=== PATIENT | female | born 1975 | race Caucasian/White ===

== ENCOUNTER 2016-06-16 23:01 | Emergency (ER) | payer OTHER ==
[2016-06-16 23:12] VITALS: BP 142/85; PULSE 83; RESP 20; TEMP 97.9
--- NOTE | 2016-06-16 23:45 | ED ---
General Adult HPI - General Chief complaint: Recheck/Abnormal Lab/Rx Stated complaint: Med refill/review Time Seen by Provider: 06/16/16 23:34 Source: patient, family, RN notes reviewed Mode of arrival: ambulatory Limitations: no limitations - History of Present Illness Initial comments: 41 yo female presents to the emergency department chief complaint of needing her pain medication and Xanax refilled. The patient states that her doctor has lost his license she called all the doctors in town they would not refill her medicine. Patient states that she did get a prescription from Dr. Kenny for the Xanax. Patient states she's been taking it but just doesn't feel like Xanax either. Patient states she was concerned that she was out of her prescriptions she called one pain doctor and he said he would take her toe she was off the OxyContin. Patient states she just needs medication refills. Patient states that she also lost her eye doctor who she sees she is wondering if she can get a referral to an eye doctor in the area as well.Patient denies any recent fever, chills, shortness of breath, chest pain, back pain, abdominal pain, nausea vomiting, numbness or tingling, dysuria or hematuria, constipation or diarrhea, headaches or visual changes, or any other current symptoms. - Related Data Home Medications Medication Instructions Recorded Confirmed ALPRAZolam [Xanax] 2 mg PO Q8H 01/03/15 06/16/16 Cyclobenzaprine [Flexeril] 10 mg PO Q8H 01/03/15 06/16/16 oxyCODONE HCL [OxyCONTIN] 80 mg PO Q6H 01/03/15 06/16/16 Vitamin C/Biotin [Hair, Skin and 1 tab PO DAILY 06/16/16 06/16/16 Nails] Allergies Allergy/AdvReac Type Severity Reaction Status Date / Time Penicillins Allergy Unknown Verified 06/16/16 23:22 Childhood Review of Systems ROS Statement: Those systems with pertinent positive or pertinent negative responses have been documented in the HPI. ROS Other: All systems not noted in ROS Statement are negative. Past Medical History Past Medical History: No Reported History Additional Past Medical History / Comment(s): sciatica, blindness-bilateral, ovarian cyst left, panceratitis, chronic back pain History of Any Multi-Drug Resistant Organisms: None Reported Past Surgical History: Section Additional Past Surgical History / Comment(s): ovarian cyst, Past Psychological History: Anxiety, Depression Smoking Status: Current every day smoker Past Alcohol Use History: None Reported Past Drug Use History: None Reported - Past Family History Father Family Medical History: Cancer Additional Family Medical History / Comment(s): leukemia General Exam Limitations: no limitations General appearance: alert, in no apparent distress Eye exam: Present: normal appearance, PERRL, EOMI. Absent: scleral icterus, conjunctival injection, periorbital swelling ENT exam: Present: normal exam, mucous membranes moist Neck exam: Present: normal inspection. Absent: tenderness, meningismus, lymphadenopathy Respiratory exam: Present: normal lung sounds bilaterally. Absent: respiratory distress, wheezes, rales, rhonchi, stridor Cardiovascular Exam: Present: regular rate, normal rhythm, normal heart sounds. Absent: systolic murmur, diastolic murmur, rubs, gallop, clicks Neurological exam: Present: alert, oriented X3, CN II-XII intact. Absent: motor sensory deficit Psychiatric exam: Present: normal affect, normal mood Skin exam: Present: warm, dry, intact, normal color. Absent: rash Course Vital Signs 06/16/16 23:09 Temperature 97.9 F Pulse Rate 83 Respiratory 20 Rate Blood Pressure 142/85 O2 Sat by Pulse 96 Oximetry Medical Decision Making - Medical Decision Making 41-year-old female presents to emergency room chief complaint of medication refill. This time we discussed that we cannot refill her narcotic pain medication. We discussed these findings pain doctor. We did educate the patient about opiate abuse and dependence. We discussed that she didn't get prescription from Dr. Kenny recently for the Xanax will not refill this either. We did give her family care doctor in [facility] as well as an eye doctor in [facility] due to the fact that she did request these. This time she will be discharged home. Return parameters and follow-up were discussed. Disposition Clinical Impression: Medication refill Disposition: HOME SELF-CARE Condition: Stable Instructions: Medicine Refill (ED) Additional Instructions: Please follow up with family doctor if symptoms have not improved over the next two days. Please return to the emergency room if your symptoms increase or worsen or for any other concerns. Referrals: Marilin Adams MD [STAFF PHYSICIAN] - 1-2 days Vinayak Valente MD [STAFF PHYSICIAN] - 1-2 days Time of Disposition: 23:45
== END 2016-06-16 23:49 | disposition home or self-care (01) ==
LOC: EC 23:01
DX: Z76.0 Encounter for issue of repeat prescription (principal); H54.0 Blindness, both eyes; F41.9 Anxiety disorder, unspecified; F32.9 Major depressive disorder, single episode, unspecified; F17.200 Nicotine dependence, unspecified, uncomplicated; Z79.899 Other long term (current) drug therapy; Z88.0 Allergy status to penicillin
CPT/HCPCS: 99281

== ENCOUNTER 2016-06-29 16:10 | Emergency (ER) | payer OTHER ==
[2016-06-29] MEDS ORDERED: HYDROmorphone 1 MG/ML 1 ML SYRINGE IVP STA (16:45)
[2016-06-29] MEDS ORDERED: SODIUM CHLORIDE 0.9% 1,000 ML IV STA ×2 (16:45)
[2016-06-29] MEDS ORDERED: METOCLOPRAMIDE 5 MG/ML 2 ML VIAL IVP STA (16:45)
[2016-06-29] MEDS ORDERED: PANTOPRAZOLE 40 MG/10 ML VIAL IVP STA (16:45)
--- NOTE | 2016-06-29 16:53 | ED ---
General Adult HPI - General Chief complaint: Abdominal Pain Stated complaint: gallbladder problems Time Seen by Provider: 06/29/16 16:32 Source: patient, family, RN notes reviewed, old records reviewed Mode of arrival: ambulatory Limitations: no limitations - History of Present Illness Initial comments: Chief complaint history of present illness a 41-year-old female here with his significant other. She has complaint of pain to the right upper quadrant. Ongoing for 3 days. Nausea vomiting and diarrhea. Denies fever. Patient reports past history of gallbladder problems and frequent episodes of pancreatitis. She did nondrinker. She also reports having had kidney stones in the past. - Related Data Home Medications Medication Instructions Recorded Confirmed Cyclobenzaprine [Flexeril] 10 mg PO TID 01/03/15 06/29/16 ALPRAZolam [Xanax] 1.5 mg PO TID 06/29/16 06/29/16 Previous Rx's Medication Instructions Recorded Ondansetron Odt [Zofran ODT] 4 mg PO Q8HR PRN #10 tab 06/29/16 Allergies Allergy/AdvReac Type Severity Reaction Status Date / Time Penicillins Allergy Unknown Verified 06/29/16 16:53 Childhood Review of Systems ROS Statement: Those systems with pertinent positive or pertinent negative responses have been documented in the HPI. Review of systems. The patient denies any headache she is lying secondary to recurrent pancreatitis and retinopathy associated with pancreatitis. The patient denies any chest pain or shortness of breath this time she has right upper quadrant pain that goes down toward right mid abdomen. Complaining of nausea vomiting and diarrhea for 3 days. No neuro deficits. All systems reviewed past medical problems significant for gallbladder stones, chronic sciatica pain. kidney stones, recurrent chronic pancreatitis but no attacks in 2007. Patient's pain management doctor as lost his license is unable to get any of her pain medications refilled. Retinopathy associated with pancreatitis. Surgeries include ovarian cysts. Family history father had leukemia. Patient has ALLERGIES to penicillin. She does smoke strongly encouraged to stop denies alcohol use. ROS Other: All systems not noted in ROS Statement are negative. Past Medical History Past Medical History: No Reported History Additional Past Medical History / Comment(s): sciatica, blindness-bilateral, ovarian cyst left, panceratitis, chronic back pain History of Any Multi-Drug Resistant Organisms: None Reported Past Surgical History: Section Additional Past Surgical History / Comment(s): ovarian cyst, Past Psychological History: Anxiety, Depression Smoking Status: Current every day smoker Past Alcohol Use History: None Reported Past Drug Use History: None Reported - Past Family History Father Family Medical History: Cancer Additional Family Medical History / Comment(s): leukemia General Exam - General Exam Comments Initial Comments: General: The patient is awake and alert, complaining of 3 days of nausea vomiting and diarrhea. With right upper quadrant pain. Vital signs shows temperature 97.3 pulse 121 respiratory rate 20 pulse ox 99% room air blood pressure 140/77. Elevated systolic noted. The patient will be referred onto a family physician on discharge. Eye: Pupils equal round and reactive to light. States she has visual acuity changes secondary to chronic pancreatitis many years ago. Ears, nose, mouth and throat: There are moist mucous membranes . Neck: The neck is supple, there is no tenderness . Cardiovascular: Tachycardic heart rate, 120, No murmur, rub or gallop is appreciated. Respiratory: Lungs are clear to auscultation, respirations are non-labored, breath sounds are equal. No wheezes, stridor, rales, or rhonchi. Gastrointestinal: Right upper quadrant pain positive Christiansen sign. No organomegaly appreciated. Back: There is no tenderness to palpation in the midline. There is no obvious deformity. No rashes noted. Musculoskeletal: Normal ROM, no tenderness, There is no pedal edema. There is no calf tenderness or swelling. Sensation intact. Neurological: CN II-XII intact, There are no obvious motor or sensory deficits. Coordination appears grossly intact. Speech is normal. No outward evidence of any neuro deficits. Skin: Skin is warm and dry and no rashes or lesions are noted. Psychiatric: Past history of anxiety and depression as noted on the previous history previous chart. No complaints of depression at this time. Limitations: no limitations Course Vital Signs 06/29/16 16:14 Temperature 97.3 F L Pulse Rate 121 H Respiratory 20 Rate Blood Pressure 140/77 O2 Sat by Pulse 99 Oximetry Medical Decision Making - Medical Decision Making Medical decision making; patient's white count is 13.3 hemoglobin 15 hematocrit of 45, potassium is 3.7 with a BUN 10 creatinine 0.66 and GFR greater than 60. Glucose 122 amylase elevated at 153 lipase elevated at 524. X-ray of the abdomen was done and reviewed by radiologist's his final impression is; nonacute abdomen. there are Unusual calcifications over the sacrum to the left of midline. This would be unusual location for calcified gallstones. These are also present on the old exam and change slightly in position. He states consider a dermoid tumor of the left ovary. As read by Dr. Diaz Review of past studies included an ultrasound of the abdomen was done 2015. The impression at that time as cholelithiasis. The common bile duct was dilated. The radiologist at that time was Dr. Newman. And discussed the patient's numbers with her. Offered admission but she thinks she rather go home with medications to control nausea. We did discuss the possibility of a dermoid cyst. She states it seems that whenever she uses Tylenol her pancreatitis flares up. She has been on Percocet for one week. In the past she had pancreatitis while she was on Vicodin. - Lab Data Result diagrams: 06/29/16 16:30 06/29/16 16:30 Lab Results 06/29/16 06/29/16 06/29/16 Range/Units 16:30 16:30 16:50 WBC 13.3 H (3.8-10.6) k/uL RBC 5.12 (3.80-5.40) m/uL Hgb 15.0 (11.4-16.0) gm/dL Hct 45.2 (34.0-46.0) % MCV 88.2 (80.0-100.0) fL MCH 29.3 (25.0-35.0) pg MCHC 33.2 (31.0-37.0) g/dL RDW 13.7 (11.5-15.5) % Plt Count 455 H (150-450) k/uL Neutrophils % 63 % Lymphocytes % 29 % Monocytes % 4 % Eosinophils % 2 % Basophils % 1 % Neutrophils # 8.3 H (1.3-7.7) k/uL Lymphocytes # 3.8 (1.0-4.8) k/uL Monocytes # 0.6 (0-1.0) k/uL Eosinophils # 0.2 (0-0.7) k/uL Basophils # 0.1 (0-0.2) k/uL Sodium 143 (137-145) mmol/L Potassium 3.7 (3.5-5.1) mmol/L Chloride 104 (98-107) mmol/L Carbon Dioxide 25 (22-30) mmol/L Anion Gap 14 mmol/L BUN 10 (7-17) mg/dL Creatinine 0.66 (0.52-1.04) mg/dL Est GFR (MDRD) Af Amer >60 (>60 ml/min/1.73 sqM) Est GFR (MDRD) Non-Af >60 (>60 ml/min/1.73 sqM) Glucose 122 H (74-99) mg/dL Calcium 9.9 (8.4-10.2) mg/dL Total Bilirubin 0.6 (0.2-1.3) mg/dL AST 19 (14-36) U/L ALT 36 (9-52) U/L Alkaline Phosphatase 79 (38-126) U/L Total Protein 8.0 (6.3-8.2) g/dL Albumin 4.4 (3.5-5.0) g/dL Amylase 153 H (30-110) U/L Lipase 524 H (23-300) U/L Urine Color Cancelled Urine Appearance Cancelled Urine pH Cancelled Ur Specific [place] Cancelled Urine Protein Cancelled Ur Protein Confirm Cancelled Urine Glucose (UA) Cancelled Urine Ketones Cancelled Urine Blood Cancelled Urine Nitrate Cancelled Urine Bilirubin Cancelled Ur Bilirubin Confirm Cancelled Urine Urobilinogen Cancelled Ur Leukocyte Esterase Cancelled Urine RBC Cancelled Urine Red Cell Clumps Cancelled Urine WBC Cancelled Urine WBC Clumps Cancelled Ur Squamous Epith Cells Cancelled Ur Transition Epith Cell Cancelled Ur Renal Epithelial Cell Cancelled Calcium Carbonate Cryst Cancelled Calcium Phosphate Cryst Cancelled Calcium Oxalate Crystal Cancelled Leucine Crystals Cancelled Cystine Crystals Cancelled Uric Acid Crystals Cancelled Triple Phos Crystals Cancelled Tyrosine Crystals Cancelled Other Crystals Cancelled Amorphous Sediment Cancelled Urine Bacteria Cancelled Cellular Casts Cancelled Epithelial Casts Cancelled Fatty Casts Cancelled Hyaline Casts Cancelled Granular Casts Cancelled Waxy Casts Cancelled Broad Casts Cancelled RBC Casts Cancelled WBC Casts Cancelled Other Casts Cancelled Urine Mucus Cancelled Urine Trichomonas Cancelled Ur Yeast w [place] Cancelled Urine Yeast (Budding) Cancelled Urine Sperm Cancelled Ur Oval Fat Bodies Cancelled Urine HCG, Qual (Not Detectd) Urine Opiates Screen Detected H (NotDetected) Ur Oxycodone Screen Not Detected (NotDetected) Urine Methadone Screen Not Detected (NotDetected) Ur Propoxyphene Screen Not Detected (NotDetected) Ur Barbiturates Screen Not Detected (NotDetected) U Tricyclic Antidepress Detected H (NotDetected) Ur Phencyclidine Scrn Not Detected (NotDetected) Ur Amphetamines Screen Not Detected (NotDetected) U Methamphetamines Scrn Not Detected (NotDetected) U Benzodiazepines Scrn Detected H (NotDetected) Urine Cocaine Screen Not Detected (NotDetected) U Marijuana (THC) Screen Detected H (NotDetected) 06/29/16 Range/Units 16:50 WBC (3.8-10.6) k/uL RBC (3.80-5.40) m/uL Hgb (11.4-16.0) gm/dL Hct (34.0-46.0) % MCV (80.0-100.0) fL MCH (25.0-35.0) pg MCHC (31.0-37.0) g/dL RDW (11.5-15.5) % Plt Count (150-450) k/uL Neutrophils % % Lymphocytes % % Monocytes % % Eosinophils % % Basophils % % Neutrophils # (1.3-7.7) k/uL Lymphocytes # (1.0-4.8) k/uL Monocytes # (0-1.0) k/uL Eosinophils # (0-0.7) k/uL Basophils # (0-0.2) k/uL Sodium (137-145) mmol/L Potassium (3.5-5.1) mmol/L Chloride (98-107) mmol/L Carbon Dioxide (22-30) mmol/L Anion Gap mmol/L BUN (7-17) mg/dL Creatinine (0.52-1.04) mg/dL Est GFR (MDRD) Af Amer (>60 ml/min/1.73 sqM) Est GFR (MDRD) Non-Af (>60 ml/min/1.73 sqM) Glucose (74-99) mg/dL Calcium (8.4-10.2) mg/dL Total Bilirubin (0.2-1.3) mg/dL AST (14-36) U/L ALT (9-52) U/L Alkaline Phosphatase (38-126) U/L Total Protein (6.3-8.2) g/dL Albumin (3.5-5.0) g/dL Amylase (30-110) U/L Lipase (23-300) U/L Urine Color Urine Appearance Urine pH Ur Specific [place] Urine Protein Ur Protein Confirm Urine Glucose (UA) Urine Ketones Urine Blood Urine Nitrate Urine Bilirubin Ur Bilirubin Confirm Urine Urobilinogen Ur Leukocyte Esterase Urine RBC Urine Red Cell Clumps Urine WBC Urine WBC Clumps Ur Squamous Epith Cells Ur Transition Epith Cell Ur Renal Epithelial Cell Calcium Carbonate Cryst Calcium Phosphate Cryst Calcium Oxalate Crystal Leucine Crystals Cystine Crystals Uric Acid Crystals Triple Phos Crystals Tyrosine Crystals Other Crystals Amorphous Sediment Urine Bacteria Cellular Casts Epithelial Casts Fatty Casts Hyaline Casts Granular Casts Waxy Casts Broad Casts RBC Casts WBC Casts Other Casts Urine Mucus Urine Trichomonas Ur Yeast w [place] Urine Yeast (Budding) Urine Sperm Ur Oval Fat Bodies Urine HCG, Qual Not Detected (Not Detectd) Urine Opiates Screen (NotDetected) Ur Oxycodone Screen (NotDetected) Urine Methadone Screen (NotDetected) Ur Propoxyphene Screen (NotDetected) Ur Barbiturates Screen (NotDetected) U Tricyclic Antidepress (NotDetected) Ur Phencyclidine Scrn (NotDetected) Ur Amphetamines Screen (NotDetected) U Methamphetamines Scrn (NotDetected) U Benzodiazepines Scrn (NotDetected) Urine Cocaine Screen (NotDetected) U Marijuana (THC) Screen (NotDetected) Disposition Clinical Impression: Pancreatitis, chronic Disposition: HOME SELF-CARE Condition: Fair Instructions: Pancreatitis (ED) Additional Instructions: Advance her diet do not use Tylenol. Use Zofran for nausea vomiting. Follow- up with her family physician to have a family physician follow-up with on-call physician to the emergency room. Prescriptions: Ondansetron Odt [Zofran ODT] 4 mg PO Q8HR PRN #10 tab PRN Reason: Nausea Time of Disposition: 18:26
[2016-06-29 16:57] LABS: Basophils # (A) 0.1 k/uL (0-0.2); Basophils % (A) 1 %; CH 29.6; CHCM 33.6; Eosinophils # (A) 0.2 k/uL (0-0.7); Eosinophils % (A) 2 %; HCT 45.2 % (34.0-46.0); HDW 2.67; Luc # (Auto) 0.29; Luc % (Auto) 2; Lymphocytes # (A) 3.8 k/uL (1.0-4.8); Lymphocytes % (A) 29 %; MCH 29.3 pg (25.0-35.0); MCHC 33.2 g/dL (31.0-37.0); MCV 88.2 fL (80.0-100.0); Mean Platelet Volume 6.7; Monocytes # (A) 0.6 k/uL (0-1.0); Monocytes % (A) 4 %; Neutrophils # (A) 8.3 k/uL (1.3-7.7); Neutrophils % (A) 63 %; RBC 5.12 m/uL (3.80-5.40); RDW 13.7 % (11.5-15.5); WBC 13.3 k/uL (3.8-10.6); WBC (Perox) 13.67
[2016-06-29 17:04] LABS: ALT 36 U/L (9-52); AST 19 U/L (14-36); Alkaline Phosphatase 79 U/L (38-126); Amylase 153 U/L (30-110); Anion Gap 14 mmol/L; Blood Urea Nitrogen 10 mg/dL (7-17); Calcium 9.9 mg/dL (8.4-10.2); Carbon Dioxide 25 mmol/L (22-30); Chloride 104 mmol/L (98-107); Glucose 122 mg/dL (74-99); Non-African American GFR(MDRD) >60 (>60 ml/min/1.73 sqM); Potassium 3.7 mmol/L (3.5-5.1); Sodium 143 mmol/L (137-145); Total Bilirubin 0.6 mg/dL (0.2-1.3)
--- NOTE | 2016-06-29 17:58 | XR ---
EXAMINATION TYPE: XR abdomen 2V DATE OF EXAM: 06/29/2016 5:34 PM COMPARISON: 02/06/2016 HISTORY: Right upper quadrant pain TECHNIQUE: 2 views FINDINGS: Bowel gas pattern is normal. There is no sign of intestinal obstruction or pneumoperitoneum . Fecal pattern is normal. There are some small rectangular type calcifications clustered over the le ft side of the sacrum of uncertain significance. IMPRESSION: Nonacute abdomen. Unusual calcifications over the sacrum to the left of midline. These wo uld be unusual location for calcified gallstones. These are also present on the old exam and change s lightly in position. I would consider a dermoid tumor of the left ovary.
[2016-06-29 18:39] VITALS: BP 105/76; PULSE 98; RESP 18; TEMP 98.2
== END 2016-06-29 18:39 | disposition home or self-care (01) ==
LOC: EC 16:10
DX: K86.1 Other chronic pancreatitis (principal); Z79.899 Other long term (current) drug therapy; Z88.0 Allergy status to penicillin; F17.200 Nicotine dependence, unspecified, uncomplicated; F41.9 Anxiety disorder, unspecified; F32.9 Major depressive disorder, single episode, unspecified
CPT/HCPCS: 36415; 80053; 82150; 83690; 85025; 81025; 80306; 87086; 87077; 87186; 74020; 96374; 96375 ×2; 96361 ×2; 99284; J2765; J1170; C9113

== ENCOUNTER 2016-07-06 16:01 | Emergency (ER) | payer OTHER ==
[2016-07-06 16:31] VITALS: RESP 18
[2016-07-06] MEDS ORDERED: ONDANSETRON 4 MG/2 ML VIAL IVP STA (18:17)
[2016-07-06] MEDS ORDERED: SODIUM CHLORIDE 0.9% 1,000 ML IV ONE (18:17)
[2016-07-06] MEDS ORDERED: HYDROmorphone 1 MG/ML 1 ML SYRINGE IVP STA ×2 (18:17→21:14)
--- NOTE | 2016-07-06 18:21 | ED ---
Abdominal Pain HPI - General Chief Complaint: Abdominal Pain Stated Complaint: Abdominal Pain Time Seen by Provider: 07/06/16 18:07 Source: patient, RN notes reviewed Mode of arrival: ambulatory Limitations: no limitations - History of Present Illness Initial Comments: Patient is a 41-year-old female who presents emergency room presentation abdominal pain. Patient states he's been having on and off abdominal pain since last visit here. Patient states she's had a history of pancreatitis. Patient states last time she was here she was told she had pancreatitis. Patient states causes pancreatitis unknown. Patient denies alcohol use. Patient states this morning she began having worsening right upper quadrant and right lower quadrant pain. Patient states this has been associated with nausea , vomiting and diarrhea. Patient denies fevers or chills. Patient states she is having 9 out of 10 constant throbbing pain. Patient denies chest pain or shortness of breath. Patient denies headache or dizziness. Patient states she has a history of ovarian cyst removal and 3 sections. - Related Data Home Medications Medication Instructions Recorded Confirmed Cyclobenzaprine [Flexeril] 10 mg PO TID 01/03/15 07/06/16 ALPRAZolam [Xanax] 1 mg PO TID 07/06/16 07/06/16 Previous Rx's Medication Instructions Recorded Ondansetron Odt [Zofran Odt] 4 mg PO Q8HR PRN #12 tab 07/06/16 traMADol HCl [Ultram] 50 mg PO Q4H PRN #12 tab 07/06/16 Allergies Allergy/AdvReac Type Severity Reaction Status Date / Time Penicillins Allergy Unknown Verified 07/06/16 18:27 Childhood Review of Systems ROS Statement: Those systems with pertinent positive or pertinent negative responses have been documented in the HPI. ROS Other: All systems not noted in ROS Statement are negative. Past Medical History Past Medical History: No Reported History Additional Past Medical History / Comment(s): sciatica, blindness-bilateral, ovarian cyst left, panceratitis, chronic back pain History of Any Multi-Drug Resistant Organisms: None Reported Past Surgical History: Section Additional Past Surgical History / Comment(s): ovarian cyst, Past Psychological History: Anxiety, Depression Smoking Status: Current every day smoker Past Alcohol Use History: None Reported Past Drug Use History: None Reported - Past Family History Father Family Medical History: Cancer Additional Family Medical History / Comment(s): leukemia General Exam - General Exam Comments Initial Comments: Sitting in exam bed, no acute distress. Limitations: no limitations General appearance: alert, in no apparent distress Head exam: Present: atraumatic, normocephalic, normal inspection Eye exam: Present: normal appearance ENT exam: Present: normal exam Neck exam: Present: normal inspection Respiratory exam: Present: normal lung sounds bilaterally. Absent: respiratory distress Cardiovascular Exam: Present: normal rhythm, tachycardia, normal heart sounds GI/Abdominal exam: Present: soft, tenderness (Right upper quadrant and right lower quadrant), normal bowel sounds. Absent: distended, guarding, rebound, rigid Extremities exam: Present: normal inspection Back exam: Present: normal inspection Neurological exam: Present: alert, oriented X3, CN II-XII intact, normal gait Psychiatric exam: Present: normal affect, normal mood Skin exam: Present: warm, dry, intact, normal color. Absent: rash Course Vital Signs 07/06/16 07/06/16 16:29 21:22 Temperature 98.8 F 98.0 F Pulse Rate 116 H 72 Respiratory 18 18 Rate Blood Pressure 107/73 113/68 O2 Sat by Pulse 98 99 Oximetry Medical Decision Making - Medical Decision Making Patient is a 41-year-old female presents to the emergency room for evaluation of abdominal pain. Labs showed no significant findings. Patient states she's feeling better after medications given. Patient states she has an appointment with Dr. Kenny later on this week. Advised patient to follow-up with Dr. Kenny for further evaluation. Advised patient to return for worsening symptoms. Agreed to send patient home with pain medications as needed. Patient states she understands everything that was discussed with her. Discussed with Dr. Ellison. - Lab Data Result diagrams: 07/06/16 18:45 07/06/16 18:45 Lab Results 07/06/16 07/06/16 07/06/16 Range/Units 18:45 18:45 18:45 WBC 12.1 H (3.8-10.6) k/uL RBC 4.25 (3.80-5.40) m/uL Hgb 12.4 (11.4-16.0) gm/dL Hct 37.8 (34.0-46.0) % MCV 88.9 (80.0-100.0) fL MCH 29.2 (25.0-35.0) pg MCHC 32.9 (31.0-37.0) g/dL RDW 13.7 (11.5-15.5) % Plt Count 417 (150-450) k/uL Neutrophils % 53 % Lymphocytes % 39 % Monocytes % 3 % Eosinophils % 3 % Basophils % 1 % Neutrophils # 6.4 (1.3-7.7) k/uL Lymphocytes # 4.7 (1.0-4.8) k/uL Monocytes # 0.4 (0-1.0) k/uL Eosinophils # 0.3 (0-0.7) k/uL Basophils # 0.1 (0-0.2) k/uL Sodium 144 (137-145) mmol/L Potassium 3.9 (3.5-5.1) mmol/L Chloride 107 (98-107) mmol/L Carbon Dioxide 25 (22-30) mmol/L Anion Gap 12 mmol/L BUN 10 (7-17) mg/dL Creatinine 0.64 (0.52-1.04) mg/dL Est GFR (MDRD) Af Amer >60 (>60 ml/min/1.73 sqM) Est GFR (MDRD) Non-Af >60 (>60 ml/min/1.73 sqM) Glucose 91 (74-99) mg/dL Calcium 9.4 (8.4-10.2) mg/dL Magnesium 2.2 (1.6-2.3) mg/dL Total Bilirubin 0.3 (0.2-1.3) mg/dL AST 16 (14-36) U/L ALT 24 (9-52) U/L Alkaline Phosphatase 74 (38-126) U/L Total Protein 6.5 (6.3-8.2) g/dL Albumin 3.6 (3.5-5.0) g/dL Amylase 103 (30-110) U/L Lipase 276 (23-300) U/L Urine Color Urine Appearance (Clear) Urine pH (5.0-8.0) Ur Specific [place] (1.001-1.035) Urine Protein (Negative) Urine Glucose (UA) (Negative) Urine Ketones (Negative) Urine Blood (Negative) Urine Nitrate (Negative) Urine Bilirubin (Negative) Urine Urobilinogen (<2.0) mg/dL Ur Leukocyte Esterase (Negative) Urine RBC (0-5) /hpf Urine WBC (0-5) /hpf Ur Squamous Epith Cells (0-4) /hpf Uric Acid Crystals (None) /hpf Urine Bacteria (None) /hpf Urine Mucus (None) /hpf Urine HCG, Qual (Not Detectd) 07/06/16 07/06/16 Range/Units 19:29 19:29 WBC (3.8-10.6) k/uL RBC (3.80-5.40) m/uL Hgb (11.4-16.0) gm/dL Hct (34.0-46.0) % MCV (80.0-100.0) fL MCH (25.0-35.0) pg MCHC (31.0-37.0) g/dL RDW (11.5-15.5) % Plt Count (150-450) k/uL Neutrophils % % Lymphocytes % % Monocytes % % Eosinophils % % Basophils % % Neutrophils # (1.3-7.7) k/uL Lymphocytes # (1.0-4.8) k/uL Monocytes # (0-1.0) k/uL Eosinophils # (0-0.7) k/uL Basophils # (0-0.2) k/uL Sodium (137-145) mmol/L Potassium (3.5-5.1) mmol/L Chloride (98-107) mmol/L Carbon Dioxide (22-30) mmol/L Anion Gap mmol/L BUN (7-17) mg/dL Creatinine (0.52-1.04) mg/dL Est GFR (MDRD) Af Amer (>60 ml/min/1.73 sqM) Est GFR (MDRD) Non-Af (>60 ml/min/1.73 sqM) Glucose (74-99) mg/dL Calcium (8.4-10.2) mg/dL Magnesium (1.6-2.3) mg/dL Total Bilirubin (0.2-1.3) mg/dL AST (14-36) U/L ALT (9-52) U/L Alkaline Phosphatase (38-126) U/L Total Protein (6.3-8.2) g/dL Albumin (3.5-5.0) g/dL Amylase (30-110) U/L Lipase (23-300) U/L Urine Color Yellow Urine Appearance Cloudy H (Clear) Urine pH 5.5 (5.0-8.0) Ur Specific [place] 1.027 (1.001-1.035) Urine Protein 1+ H (Negative) Urine Glucose (UA) Negative (Negative) Urine Ketones Trace H (Negative) Urine Blood Moderate H (Negative) Urine Nitrate Negative (Negative) Urine Bilirubin Negative (Negative) Urine Urobilinogen 3.0 (<2.0) mg/dL Ur Leukocyte Esterase Trace H (Negative) Urine RBC 19 H (0-5) /hpf Urine WBC 15 H (0-5) /hpf Ur Squamous Epith Cells 17 H (0-4) /hpf Uric Acid Crystals Few H (None) /hpf Urine Bacteria Moderate H (None) /hpf Urine Mucus Many H (None) /hpf Urine HCG, Qual Not Detected (Not Detectd) - Radiology Data Radiology results: report reviewed, image reviewed Disposition Clinical Impression: Abdominal pain, Nausea and vomiting Disposition: HOME SELF-CARE Condition: Good Instructions: Abdominal Pain (ED) Additional Instructions: Take pain medications as needed. Take Zofran as needed for nausea. Please follow up with primary care provider for further evaluation this week. If any new symptom arises or symptoms worsen, return to ER as soon as possible. Prescriptions: Ondansetron Odt [Zofran Odt] 4 mg PO Q8HR PRN #12 tab PRN Reason: Nausea traMADol HCl [Ultram] 50 mg PO Q4H PRN #12 tab PRN Reason: Pain Referrals: Dami Kenny MD [Primary Care Provider] - 1-2 days Time of Disposition: 21:03
[2016-07-06 18:51] LABS: Basophils # (A) 0.1 k/uL (0-0.2); Basophils % (A) 1 %; CH 29.6; CHCM 33.5; Eosinophils # (A) 0.3 k/uL (0-0.7); Eosinophils % (A) 3 %; HCT 37.8 % (34.0-46.0); HDW 2.77; HGB 12.4 gm/dL (11.4-16.0); Luc # (Auto) 0.25; Luc % (Auto) 2; Lymphocytes # (A) 4.7 k/uL (1.0-4.8); Lymphocytes % (A) 39 %; MCH 29.2 pg (25.0-35.0); MCHC 32.9 g/dL (31.0-37.0); MCV 88.9 fL (80.0-100.0); Mean Platelet Volume 7.4; Monocytes # (A) 0.4 k/uL (0-1.0); Monocytes % (A) 3 %; Neutrophils # (A) 6.4 k/uL (1.3-7.7); Neutrophils % (A) 53 %; RBC 4.25 m/uL (3.80-5.40); RDW 13.7 % (11.5-15.5); WBC 12.1 k/uL (3.8-10.6); WBC (Perox) 12.12
[2016-07-06 19:08] LABS: ALT 24 U/L (9-52); AST 16 U/L (14-36); Alkaline Phosphatase 74 U/L (38-126); Amylase 103 U/L (30-110); Anion Gap 12 mmol/L; Blood Urea Nitrogen 10 mg/dL (7-17); Calcium 9.4 mg/dL (8.4-10.2); Carbon Dioxide 25 mmol/L (22-30); Chloride 107 mmol/L (98-107); Glucose 91 mg/dL (74-99); Magnesium 2.2 mg/dL (1.6-2.3); Non-African American GFR(MDRD) >60 (>60 ml/min/1.73 sqM); Potassium 3.9 mmol/L (3.5-5.1); Sodium 144 mmol/L (137-145); Total Bilirubin 0.3 mg/dL (0.2-1.3); Total Protein 6.5 g/dL (6.3-8.2)
--- NOTE | 2016-07-06 19:14 | XR ---
EXAMINATION TYPE: XR KUB DATE OF EXAM: 07/06/2016 7:06 PM COMPARISON: 02/06/2016 HISTORY: Right-sided abdominal pain TECHNIQUE: 2 views FINDINGS: Bowel gas pattern is normal. There is no sign of intestinal obstruction or pneumoperitoneum . Fecal pattern is normal. There are some amorphous rectangular shaped calcifications in the pelvis o evy the left side of the sacrum that are unchanged compared to last exam. IMPRESSION: Nonacute abdomen. Unusual pelvic calcifications raise the possibility of a dermoid tumor. No change compared to last exam.
[2016-07-06 19:51] LABS: Appearance,Urine Cloudy (Clear); Bacteria,Urine Moderate /hpf; Bilirubin,Urine Negative (Negative); Glucose,Urine (UA) Negative (Negative); Ketones,Urine Trace (Negative); Leukocyte Esterase,Urine Trace (Negative); Mucus,Urine Many /hpf; Nitrite,Urine Negative (Negative); PH, Urine 5.5 (5.0-8.0); Particle Count 24569; Protein,Urine 1+ (Negative); RBC,Urine 19 /hpf (0-5); Specific Gravity,Urine 1.027 (1.001-1.035); Squamous Epithelial Cell,Urine 17 /hpf (0-4); UA Billing (MACRO vs. MICRO) MICRO; Uric Acid Crystals,Urine Few /hpf; WBC,Urine 15 /hpf (0-5)
[2016-07-06 21:23] VITALS: BP 113/68; PULSE 72; TEMP 98
== END 2016-07-06 21:24 | disposition home or self-care (01) ==
LOC: EC 16:01
DX: R10.11 Right upper quadrant pain (principal); R10.12 Left upper quadrant pain; R11.2 Nausea with vomiting, unspecified; R19.7 Diarrhea, unspecified; F41.9 Anxiety disorder, unspecified; F32.9 Major depressive disorder, single episode, unspecified; F17.200 Nicotine dependence, unspecified, uncomplicated; H54.0 Blindness, both eyes; Z88.0 Allergy status to penicillin; Z98.890 Other specified postprocedural states; Z79.899 Other long term (current) drug therapy
CPT/HCPCS: 99284; 96374; 96376; 96375; 96361; 36415; 80053; 82150; 83690; 83735; 85025; 81001; 81025; 74000; J2405; J1170

== ENCOUNTER 2016-10-31 08:35 | Emergency (ER) | payer OTHER ==
[2016-10-31] MEDS ORDERED: LORazepam 2 MG/ML SYRINGE IV STA ×2 (08:53→10:09)
[2016-10-31] MEDS ORDERED: SODIUM CHLORIDE 0.9% 500 ML IV STA (08:53)
--- NOTE | 2016-10-31 09:01 | ED ---
General Adult HPI - General Chief complaint: Anxiety Stated complaint: SOLITARIO/Numbness in arms and feet Time Seen by Provider: 10/31/16 08:45 Source: patient, RN notes reviewed Mode of arrival: ambulatory Limitations: no limitations - History of Present Illness Initial comments: 41-year-old female presents emergency department complaining that she feels as if she cannot get a good deep breath. Patient states this is been going on since last night. Patient states that she does suffer from anxiety. Patient is a 62 is also having numbness and tingling to both fingers. Patient states she does have chronic burning to bilateral feet and that is also going on today as well. Patient states she just feels as if something is wrong. Patient took her at home medications of Xanax however she did not start to feel better. Patient states that she was concerned due to her continued symptoms so she thought that she should be evaluated. Patient denies any pain with this. Patient denies any recent fever, chills, chest pain, back pain, abdominal pain, nausea vomiting, numbness or tingling, dysuria or hematuria, constipation or diarrhea, headaches or visual changes, or any other current symptoms. - Related Data Home Medications Medication Instructions Recorded Confirmed Cyclobenzaprine [Flexeril] 10 mg PO TID 01/03/15 07/06/16 ALPRAZolam [Xanax] 1 mg PO TID 07/06/16 07/06/16 Previous Rx's Medication Instructions Recorded Ondansetron Odt [Zofran Odt] 4 mg PO Q8HR PRN #12 tab 07/06/16 traMADol HCl [Ultram] 50 mg PO Q4H PRN #12 tab 07/06/16 Allergies Allergy/AdvReac Type Severity Reaction Status Date / Time Penicillins Allergy Unknown Verified 07/06/16 18:27 Childhood Review of Systems ROS Statement: Those systems with pertinent positive or pertinent negative responses have been documented in the HPI. ROS Other: All systems not noted in ROS Statement are negative. Past Medical History Past Medical History: No Reported History Additional Past Medical History / Comment(s): sciatica, blindness-bilateral, ovarian cyst left, panceratitis, chronic back pain History of Any Multi-Drug Resistant Organisms: None Reported Past Surgical History: Section Additional Past Surgical History / Comment(s): ovarian cyst, Past Psychological History: Anxiety, Depression Smoking Status: Current every day smoker Past Alcohol Use History: None Reported Past Drug Use History: None Reported - Past Family History Father Family Medical History: Cancer Additional Family Medical History / Comment(s): leukemia General Exam - General Exam Comments Initial Comments: General: The patient is awake and alert, in no distress, and does not appear acutely ill. Eye: Pupils are equal, round and reactive to light, extra-ocular movements are intact; there is normal conjunctiva bilaterally. No signs of icterus. Ears, nose, mouth and throat: There are moist mucous membranes and no oral lesions. Neck: The neck is supple, there is no tenderness. Cardiovascular: There is a regular rate and rhythm. No murmur, rub or gallop is appreciated. Respiratory: Lungs are clear to auscultation, respirations are non-labored, breath sounds are equal. No wheezes, stridor, rales, or rhonchi. Gastrointestinal: Soft, non-distended, non-tender abdomen without masses or organomegaly noted. There is no rebound or guarding present. No CVA tenderness. Bowel sounds are unremarkable. Back: There is no tenderness to palpation in the midline. There is no obvious deformity. No rashes noted. Musculoskeletal: Normal ROM, no tenderness, There is no pedal edema. There is no calf tenderness or swelling. Sensation intact. Pulses equal bilaterally 2+. Neurological: CN II-XII intact, There are no obvious motor or sensory deficits. Coordination appears grossly intact. Speech is normal. Skin: Skin is warm and dry and no rashes or lesions are noted. Psychiatric: Cooperative, appropriate mood & affect, normal judgment. Limitations: no limitations Course Vital Signs 10/31/16 10/31/16 10/31/16 08:38 09:38 10:31 Temperature 98.5 F 98.4 F 98.5 F Pulse Rate 110 H 86 86 Respiratory 20 16 20 Rate Blood Pressure 150/96 117/81 134/82 O2 Sat by Pulse 98 99 96 Oximetry - Reevaluation(s) Reevaluation #1: 10/31/16 10:09 Patient was reexamined at this time and she states that her breathing has somewhat improved with the medication. Patient continues to be 100% on room air. This time we'll give her some more Ativan to see how the patient improves. Medical Decision Making - Medical Decision Making 41-year-old female presents emergency Department with a chief complaint of shortness of breath. The patient does appear anxious in the room. This time patient was reassessed and is feeling better. At this time we discussed follow- up with neurology due to the fact that her legs. Most likely a peripheral neuropathy. We did discuss return parameters all questions. Patient stated that she understood and she is in agreement with plan. She will be discharged. - Lab Data Result diagrams: 10/31/16 09:13 10/31/16 09:13 Lab Results 10/31/16 10/31/16 10/31/16 Range/Units 09:13 09:13 09:13 WBC 10.4 (3.8-10.6) k/uL RBC 4.68 (3.80-5.40) m/uL Hgb 13.8 (11.4-16.0) gm/dL Hct 40.2 (34.0-46.0) % MCV 85.8 (80.0-100.0) fL MCH 29.4 (25.0-35.0) pg MCHC 34.3 (31.0-37.0) g/dL RDW 14.4 (11.5-15.5) % Plt Count 455 H (150-450) k/uL Neutrophils % 57 % Lymphocytes % 32 % Monocytes % 4 % Eosinophils % 3 % Basophils % 1 % Neutrophils # 5.9 (1.3-7.7) k/uL Lymphocytes # 3.3 (1.0-4.8) k/uL Monocytes # 0.4 (0-1.0) k/uL Eosinophils # 0.3 (0-0.7) k/uL Basophils # 0.1 (0-0.2) k/uL D-Dimer (<0.60) mg/L FEU Sodium 141 (137-145) mmol/L Potassium 4.4 (3.5-5.1) mmol/L Chloride 109 H (98-107) mmol/L Carbon Dioxide 19 L (22-30) mmol/L Anion Gap 13 mmol/L BUN 14 (7-17) mg/dL Creatinine 0.70 (0.52-1.04) mg/dL Est GFR (MDRD) Af Amer >60 (>60 ml/min/1.73 sqM) Est GFR (MDRD) Non-Af >60 (>60 ml/min/1.73 sqM) Glucose 106 H (74-99) mg/dL Calcium 9.8 (8.4-10.2) mg/dL Total Bilirubin 0.5 (0.2-1.3) mg/dL AST 22 (14-36) U/L ALT 28 (9-52) U/L Alkaline Phosphatase 90 (38-126) U/L Total Protein 7.5 (6.3-8.2) g/dL Albumin 4.4 (3.5-5.0) g/dL Urine Color Light Yellow Urine Appearance Clear (Clear) Urine pH 5.5 (5.0-8.0) Ur Specific [place] 1.004 (1.001-1.035) Urine Protein Negative (Negative) Urine Glucose (UA) Negative (Negative) Urine Ketones Negative (Negative) Urine Blood Negative (Negative) Urine Nitrite Negative (Negative) Urine Bilirubin Negative (Negative) Urine Urobilinogen <2.0 (<2.0) mg/dL Ur Leukocyte Esterase Negative (Negative) Urine Opiates Screen Not Detected (NotDetected) Ur Oxycodone Screen Not Detected (NotDetected) Urine Methadone Screen Not Detected (NotDetected) Ur Propoxyphene Screen Not Detected (NotDetected) Ur Barbiturates Screen Not Detected (NotDetected) U Tricyclic Antidepress Not Detected (NotDetected) Ur Phencyclidine Scrn Not Detected (NotDetected) Ur Amphetamines Screen Not Detected (NotDetected) U Methamphetamines Scrn Not Detected (NotDetected) U Benzodiazepines Scrn Detected H (NotDetected) Urine Cocaine Screen Not Detected (NotDetected) U Marijuana (THC) Screen Detected H (NotDetected) 10/31/16 Range/Units 09:13 WBC (3.8-10.6) k/uL RBC (3.80-5.40) m/uL Hgb (11.4-16.0) gm/dL Hct (34.0-46.0) % MCV (80.0-100.0) fL MCH (25.0-35.0) pg MCHC (31.0-37.0) g/dL RDW (11.5-15.5) % Plt Count (150-450) k/uL Neutrophils % % Lymphocytes % % Monocytes % % Eosinophils % % Basophils % % Neutrophils # (1.3-7.7) k/uL Lymphocytes # (1.0-4.8) k/uL Monocytes # (0-1.0) k/uL Eosinophils # (0-0.7) k/uL Basophils # (0-0.2) k/uL D-Dimer 0.55 (<0.60) mg/L FEU Sodium (137-145) mmol/L Potassium (3.5-5.1) mmol/L Chloride (98-107) mmol/L Carbon Dioxide (22-30) mmol/L Anion Gap mmol/L BUN (7-17) mg/dL Creatinine (0.52-1.04) mg/dL Est GFR (MDRD) Af Amer (>60 ml/min/1.73 sqM) Est GFR (MDRD) Non-Af (>60 ml/min/1.73 sqM) Glucose (74-99) mg/dL Calcium (8.4-10.2) mg/dL Total Bilirubin (0.2-1.3) mg/dL AST (14-36) U/L ALT (9-52) U/L Alkaline Phosphatase (38-126) U/L Total Protein (6.3-8.2) g/dL Albumin (3.5-5.0) g/dL Urine Color Urine Appearance (Clear) Urine pH (5.0-8.0) Ur Specific [place] (1.001-1.035) Urine Protein (Negative) Urine Glucose (UA) (Negative) Urine Ketones (Negative) Urine Blood (Negative) Urine Nitrite (Negative) Urine Bilirubin (Negative) Urine Urobilinogen (<2.0) mg/dL Ur Leukocyte Esterase (Negative) Urine Opiates Screen (NotDetected) Ur Oxycodone Screen (NotDetected) Urine Methadone Screen (NotDetected) Ur Propoxyphene Screen (NotDetected) Ur Barbiturates Screen (NotDetected) U Tricyclic Antidepress (NotDetected) Ur Phencyclidine Scrn (NotDetected) Ur Amphetamines Screen (NotDetected) U Methamphetamines Scrn (NotDetected) U Benzodiazepines Scrn (NotDetected) Urine Cocaine Screen (NotDetected) U Marijuana (THC) Screen (NotDetected) - Radiology Data Radiology results: report reviewed, image reviewed Disposition Clinical Impression: Acute anxiety, Neuropathy Disposition: HOME SELF-CARE Condition: Stable Instructions: Panic Disorder (ED), Peripheral Neuropathy (ED) Additional Instructions: Please use medication as discussed. Please follow up with family doctor if symptoms have not improved over the next two days. Please return to the emergency room if your symptoms increase or worsen or for any other concerns. Referrals: Marilin Adams MD [STAFF PHYSICIAN] - 1-2 days Kayla Tanner MD [STAFF PHYSICIAN] - 1-2 days Time of Disposition: 11:18
--- NOTE | 2016-10-31 09:40 | XR ---
EXAMINATION TYPE: XR chest 2V DATE OF EXAM: 10/31/2016 COMPARISON: 01/03/2015 INDICATION: Cough TECHNIQUE: Frontal and lateral views of the chest are obtained. FINDINGS: The heart size is normal. The pulmonary vasculature is normal. The lungs are clear. IMPRESSION: 1. No acute pulmonary process.
[2016-10-31 09:43] LABS: Appearance,Urine Clear (Clear); Basophils # (A) 0.1 k/uL (0-0.2); Basophils % (A) 1 %; Bilirubin,Urine Negative (Negative); CH 28.8; CHCM 33.7; Eosinophils # (A) 0.3 k/uL (0-0.7); Eosinophils % (A) 3 %; Glucose,Urine (UA) Negative (Negative); HCT 40.2 % (34.0-46.0); HDW 2.59; HGB 13.8 gm/dL (11.4-16.0); Ketones,Urine Negative (Negative); Leukocyte Esterase,Urine Negative (Negative); Luc # (Auto) 0.27; Luc % (Auto) 3; Lymphocytes # (A) 3.3 k/uL (1.0-4.8); Lymphocytes % (A) 32 %; MCH 29.4 pg (25.0-35.0); MCHC 34.3 g/dL (31.0-37.0); MCV 85.8 fL (80.0-100.0); Mean Platelet Volume 6.7; Monocytes # (A) 0.4 k/uL (0-1.0); Monocytes % (A) 4 %; Neutrophils # (A) 5.9 k/uL (1.3-7.7); Neutrophils % (A) 57 %; Nitrite,Urine Negative (Negative); PH, Urine 5.5 (5.0-8.0); Protein,Urine Negative (Negative); RBC 4.68 m/uL (3.80-5.40); RDW 14.4 % (11.5-15.5); Specific Gravity,Urine 1.004 (1.001-1.035); UA Billing (MACRO vs. MICRO) CHEM; Urobilinogen,Urine <2.0 mg/dL (<2.0); WBC 10.4 k/uL (3.8-10.6); WBC (Perox) 10.64
[2016-10-31 09:58] LABS: ALT 28 U/L (9-52); AST 22 U/L (14-36); Alkaline Phosphatase 90 U/L (38-126); Anion Gap 13 mmol/L; Blood Urea Nitrogen 14 mg/dL (7-17); Calcium 9.8 mg/dL (8.4-10.2); Carbon Dioxide 19 mmol/L (22-30); Chloride 109 mmol/L (98-107); Glucose 106 mg/dL (74-99); Non-African American GFR(MDRD) >60 (>60 ml/min/1.73 sqM); Potassium 4.4 mmol/L (3.5-5.1); Sodium 141 mmol/L (137-145); Total Bilirubin 0.5 mg/dL (0.2-1.3); Total Protein 7.5 g/dL (6.3-8.2)
[2016-10-31 11:22] VITALS: BP 137/83; PULSE 89; RESP 18; TEMP 98.7
== END 2016-10-31 11:33 | disposition home or self-care (01) ==
LOC: EC 08:35
DX: F41.9 Anxiety disorder, unspecified (principal); G62.9 Polyneuropathy, unspecified; F17.200 Nicotine dependence, unspecified, uncomplicated; R06.02 Shortness of breath; H54.0 Blindness, both eyes; Z79.899 Other long term (current) drug therapy; Z88.0 Allergy status to penicillin
CPT/HCPCS: 99284; 96374; 96376; 96361; 36415; 93005; 85379; 80053; 85025; 81003; 80306; 71020; J2060

== ENCOUNTER → 2017-03-15 | Outpatient (CLI) | payer OTHER ==
[2017-03-11 09:54] VITALS: BMI 27.3
[2017-03-15 13:21] VITALS: BP 113/80; PULSE 88; RESP 16; TEMP 99
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
== END | disposition home or self-care (01) ==
LOC: PNWHC3 12:44
PROVIDERS: ATTEND Anesthesiology
DX: M54.5 Low back pain (principal); G89.29 Other chronic pain; F41.9 Anxiety disorder, unspecified; F32.9 Major depressive disorder, single episode, unspecified; F17.200 Nicotine dependence, unspecified, uncomplicated; Z79.899 Other long term (current) drug therapy; Z88.0 Allergy status to penicillin
CPT/HCPCS: 80053; 82607; 83036; 83735; 84443; 85025; 99211

== ENCOUNTER 2017-05-07 14:53 | Emergency (ER) | payer OTHER ==
[2017-05-07 15:17] LABS: Appearance,Urine Clear (Clear); Bilirubin,Urine Negative (Negative); Blood,Urine Negative (Negative); Color,Urine Yellow; Glucose,Urine (UA) Negative (Negative); Ketones,Urine Negative (Negative); Leukocyte Esterase,Urine Negative (Negative); Nitrite,Urine Negative (Negative); PH, Urine 5.5 (5.0-8.0); Protein,Urine Negative (Negative); Specific Gravity,Urine 1.012 (1.001-1.035); Urobilinogen,Urine <2.0 mg/dL (<2.0)
[2017-05-07] MEDS ORDERED: HYDROmorphone 1 MG/ML 1 ML SYRINGE IVP STA (16:03)
[2017-05-07] MEDS ORDERED: FAMOTIDINE 20 MG/2 ML VIAL IV STA (16:03)
[2017-05-07] MEDS ORDERED: SODIUM CHLORIDE 0.9% 1,000 ML IV STA (16:03)
[2017-05-07] MEDS ORDERED: ONDANSETRON 4 MG/2 ML VIAL IVP STA (16:03)
[2017-05-07] MEDS ORDERED: RX INFO: IV CONTRAST WAS GIVEN 1 EACH MISC MISCELLANE PRN (16:03)
--- NOTE | 2017-05-07 16:07 | ED ---
General Adult HPI - General Chief complaint: Abdominal Pain Stated complaint: Abd pain Time Seen by Provider: 05/07/17 15:56 Source: patient, RN notes reviewed Mode of arrival: ambulatory Limitations: no limitations - History of Present Illness Initial comments: 42-year-old female presents to the emergency Department chief complaint of right upper quadrant abdominal pain. She had her gallbladder out a few months ago and she is just been having pain on and off since. She states it gets better and it gets worse. There's been no nausea vomiting no fever or chills. She was concerned due to her continued discomfort so she thought that she should be evaluated. Pain is moderate. She states that it's been about 2 days of this intensity. Patient has had no nausea no vomiting no chest pain or shortness of breath no fever no chills no back pain no changes in urination or changes in bowel habits no headache no visual changes. - Related Data Home Medications Medication Instructions Recorded Confirmed Sertraline HCl [Zoloft] 200 mg PO DAILY 02/04/17 05/07/17 Propranolol [Inderal] 20 mg PO BID 03/11/17 05/07/17 Cetirizine HCl 10 mg PO DAILY PRN 05/07/17 05/07/17 Gabapentin [Neurontin] 300 mg PO TID 05/07/17 05/07/17 LORazepam [Ativan] 1 mg PO TID PRN 05/07/17 05/07/17 Allergies Allergy/AdvReac Type Severity Reaction Status Date / Time Penicillins Allergy Unknown Verified 05/07/17 16:02 Childhood Review of Systems ROS Statement: Those systems with pertinent positive or pertinent negative responses have been documented in the HPI. ROS Other: All systems not noted in ROS Statement are negative. Past Medical History Past Medical History: No Reported History Additional Past Medical History / Comment(s): sciatica. Chronic pancreatitis. Legally blind. Degenerative joint disease of the back. History of ovarian cyst History of Any Multi-Drug Resistant Organisms: None Reported Past Surgical History: Section, Cholecystectomy Additional Past Surgical History / Comment(s): ovarian cyst removal Past Anesthesia/Blood Transfusion Reactions: No Reported Reaction Past Psychological History: Anxiety, Depression Smoking Status: Current every day smoker Past Alcohol Use History: None Reported Past Drug Use History: Marijuana - Past Family History Father Family Medical History: Cancer Additional Family Medical History / Comment(s): leukemia General Exam Limitations: no limitations General appearance: alert, in no apparent distress Eye exam: Present: normal appearance, PERRL, EOMI. Absent: scleral icterus, conjunctival injection, periorbital swelling ENT exam: Present: normal exam, mucous membranes moist Neck exam: Present: normal inspection. Absent: tenderness, meningismus, lymphadenopathy Respiratory exam: Present: normal lung sounds bilaterally. Absent: respiratory distress, wheezes, rales, rhonchi, stridor Cardiovascular Exam: Present: regular rate, normal rhythm, normal heart sounds. Absent: systolic murmur, diastolic murmur, rubs, gallop, clicks GI/Abdominal exam: Present: soft, normal bowel sounds. Absent: distended, tenderness, guarding, rebound, rigid Neurological exam: Present: alert, oriented X3 Psychiatric exam: Present: normal affect, normal mood Skin exam: Present: warm, dry, intact Course Vital Signs 05/07/17 05/07/17 14:59 16:23 Temperature 98.2 F Pulse Rate 73 64 Respiratory 16 19 Rate Blood Pressure 131/86 117/75 O2 Sat by Pulse 98 98 Oximetry Medical Decision Making - Medical Decision Making 42-year-old female presents emergency 5 chief complaint of right-sided abdominal pain. At this time patient's imaging has been reviewed. We did warn her of her ovarian cyst. Discussed close follow-up with STATISTICAL DEVELOPER. Discussed return parameters all questions. The patient and family stated they understood and management this plan. She is resting comfortably in bed. This time patient will be discharged home. - Lab Data Result diagrams: 05/07/17 16:10 05/07/17 16:10 Lab Results 05/07/17 05/07/17 05/07/17 Range/Units 15:00 15:00 16:10 WBC (3.8-10.6) k/uL RBC (3.80-5.40) m/uL Hgb (11.4-16.0) gm/dL Hct (34.0-46.0) % MCV (80.0-100.0) fL MCH (25.0-35.0) pg MCHC (31.0-37.0) g/dL RDW (11.5-15.5) % Plt Count (150-450) k/uL Neutrophils % % Lymphocytes % % Monocytes % % Eosinophils % % Basophils % % Neutrophils # (1.3-7.7) k/uL Lymphocytes # (1.0-4.8) k/uL Monocytes # (0-1.0) k/uL Eosinophils # (0-0.7) k/uL Basophils # (0-0.2) k/uL Sodium 139 (137-145) mmol/L Potassium 4.8 (3.5-5.1) mmol/L Chloride 108 H (98-107) mmol/L Carbon Dioxide 24 (22-30) mmol/L Anion Gap 7 mmol/L BUN 15 (7-17) mg/dL Creatinine 0.67 (0.52-1.04) mg/dL Est GFR (MDRD) Af Amer >60 (>60 ml/min/1.73 sqM) Est GFR (MDRD) Non-Af >60 (>60 ml/min/1.73 sqM) Glucose 89 (74-99) mg/dL Calcium 9.2 (8.4-10.2) mg/dL Total Bilirubin 0.4 (0.2-1.3) mg/dL AST 25 (14-36) U/L ALT 23 (9-52) U/L Alkaline Phosphatase 74 (38-126) U/L Total Protein 7.2 (6.3-8.2) g/dL Albumin 4.0 (3.5-5.0) g/dL Amylase 139 H (30-110) U/L Lipase 251 (23-300) U/L Urine Color Yellow Urine Appearance Clear (Clear) Urine pH 5.5 (5.0-8.0) Ur Specific [place] 1.012 (1.001-1.035) Urine Protein Negative (Negative) Urine Glucose (UA) Negative (Negative) Urine Ketones Negative (Negative) Urine Blood Negative (Negative) Urine Nitrite Negative (Negative) Urine Bilirubin Negative (Negative) Urine Urobilinogen <2.0 (<2.0) mg/dL Ur Leukocyte Esterase Negative (Negative) Urine HCG, Qual Not Detected (Not Detectd) 05/07/17 Range/Units 16:10 WBC 10.1 (3.8-10.6) k/uL RBC 4.33 (3.80-5.40) m/uL Hgb 12.2 (11.4-16.0) gm/dL Hct 38.6 (34.0-46.0) % MCV 89.3 (80.0-100.0) fL MCH 28.1 (25.0-35.0) pg MCHC 31.5 (31.0-37.0) g/dL RDW 15.0 (11.5-15.5) % Plt Count 387 (150-450) k/uL Neutrophils % 58 % Lymphocytes % 31 % Monocytes % 3 % Eosinophils % 5 % Basophils % 1 % Neutrophils # 5.9 (1.3-7.7) k/uL Lymphocytes # 3.2 (1.0-4.8) k/uL Monocytes # 0.3 (0-1.0) k/uL Eosinophils # 0.5 (0-0.7) k/uL Basophils # 0.1 (0-0.2) k/uL Sodium (137-145) mmol/L Potassium (3.5-5.1) mmol/L Chloride (98-107) mmol/L Carbon Dioxide (22-30) mmol/L Anion Gap mmol/L BUN (7-17) mg/dL Creatinine (0.52-1.04) mg/dL Est GFR (MDRD) Af Amer (>60 ml/min/1.73 sqM) Est GFR (MDRD) Non-Af (>60 ml/min/1.73 sqM) Glucose (74-99) mg/dL Calcium (8.4-10.2) mg/dL Total Bilirubin (0.2-1.3) mg/dL AST (14-36) U/L ALT (9-52) U/L Alkaline Phosphatase (38-126) U/L Total Protein (6.3-8.2) g/dL Albumin (3.5-5.0) g/dL Amylase (30-110) U/L Lipase (23-300) U/L Urine Color Urine Appearance (Clear) Urine pH (5.0-8.0) Ur Specific [place] (1.001-1.035) Urine Protein (Negative) Urine Glucose (UA) (Negative) Urine Ketones (Negative) Urine Blood (Negative) Urine Nitrite (Negative) Urine Bilirubin (Negative) Urine Urobilinogen (<2.0) mg/dL Ur Leukocyte Esterase (Negative) Urine HCG, Qual (Not Detectd) - Radiology Data Radiology results: report reviewed, image reviewed Disposition Clinical Impression: Ovarian cyst, left, Abdominal pain Disposition: HOME SELF-CARE Condition: Stable Instructions: Ovarian Cyst (ED) Additional Instructions: Please use medication as discussed. Please follow up with family doctor if symptoms have not improved over the next two days. Please return to the emergency room if your symptoms increase or worsen or for any other concerns. Referrals: Marilin Adams MD [Primary Care Provider] - 1-2 days Sophia Koehler MD [STAFF PHYSICIAN] - 1-2 days Time of Disposition: 17:39
[2017-05-07 16:21] LABS: Basophils # (A) 0.1 k/uL (0-0.2); Basophils % (A) 1 %; Eosinophils # (A) 0.5 k/uL (0-0.7); Eosinophils % (A) 5 %; HCT 38.6 % (34.0-46.0); HGB 12.2 gm/dL (11.4-16.0); Lymphocytes # (A) 3.2 k/uL (1.0-4.8); Lymphocytes % (A) 31 %; MCH 28.1 pg (25.0-35.0); MCHC 31.5 g/dL (31.0-37.0); MCV 89.3 fL (80.0-100.0); Mean Platelet Volume 6.8; Monocytes # (A) 0.3 k/uL (0-1.0); Monocytes % (A) 3 %; Neutrophils # (A) 5.9 k/uL (1.3-7.7); Neutrophils % (A) 58 %; Platelet Count 387 k/uL (150-450); RBC 4.33 m/uL (3.80-5.40); WBC 10.1 k/uL (3.8-10.6)
[2017-05-07 16:31] LABS: ALT 23 U/L (9-52); AST 25 U/L (14-36); Alkaline Phosphatase 74 U/L (38-126); Amylase 139 U/L (30-110); Anion Gap 7 mmol/L; Blood Urea Nitrogen 15 mg/dL (7-17); Calcium 9.2 mg/dL (8.4-10.2); Carbon Dioxide 24 mmol/L (22-30); Chloride 108 mmol/L (98-107); Glucose 89 mg/dL (74-99); Lipase 251 U/L (23-300); Sodium 139 mmol/L (137-145); Total Bilirubin 0.4 mg/dL (0.2-1.3); Total Protein 7.2 g/dL (6.3-8.2)
[2017-05-07 16:34] LABS: Potassium 4.8 mmol/L (3.5-5.1)
--- NOTE | 2017-05-07 17:30 | CT ---
EXAMINATION TYPE: CT abdomen pelvis w con DATE OF EXAM: 05/07/2017 COMPARISON: NONE HISTORY: Right upper quadrant pain on and off x [address] DLP: 888.40 mGycm Automated exposure control for dose reduction was used. TECHNIQUE: Helical acquisition of images was performed from the lung bases through the pelvis. CONTRAST: Performed without Oral Contrast and with IV Contrast, patient injected with 100 mL of Omnipaque 300. FINDINGS: Lung bases are clear. There is no pleural effusion. Heart size is normal. Liver spleen pancreas appear normal. There are clips from cholecystectomy. Bile ducts are not dilated . There is no adrenal mass. Kidneys show satisfactory contrast opacification. There is no hydronephro sis. There is a large midline cystic pelvic mass that measures 18 cm in length. The urinary bladder d istends smoothly. There is no free fluid in the pelvis. There is a 6.5 x 3.8 cm mixed density mass in the pelvis on the left side of the uterus. This contains fat and calcification. The calcification co uld be multiple teeth. The bony structures are intact. Uterus is retroverted. Appendix is not seen. T here is no sign of appendicitis. I see no intestinal wall thickening. IMPRESSION: LARGE MIDLINE CYSTIC PELVIC MASS CONSISTENT WITH VERY LARGE OVARIAN CYST. MIXED DENSITY LEFT ADNEXAL MASS CONSISTENT WITH A DERMOID TUMOR OR TERATOMA.
[2017-05-07 18:15] VITALS: BP 106/56; PULSE 60; RESP 16; TEMP 97.4
== END 2017-05-07 18:14 | disposition home or self-care (01) ==
LOC: EC 14:53
DX: N83.202 Unspecified ovarian cyst, left side (principal); R10.11 Right upper quadrant pain; F32.9 Major depressive disorder, single episode, unspecified; F41.9 Anxiety disorder, unspecified; F17.200 Nicotine dependence, unspecified, uncomplicated; Z98.890 Other specified postprocedural states; Z90.49 Acquired absence of other specified parts of digestive tract; Z88.0 Allergy status to penicillin; Z79.899 Other long term (current) drug therapy
CPT/HCPCS: 99284; 96374; 96375 ×2; 96361; 36415; 80053; 82150; 83690; 85025; 81003; 81025; 74177; J2405; J1170; Q9967

== ENCOUNTER → 2017-07-28 | Outpatient (CLI) | payer OTHER ==
--- NOTE | 2017-07-28 15:29 | US ---
EXAMINATION TYPE: US pelvis complete transvag DATE OF EXAM: 07/28/2017 COMPARISON: CT 05/07/2017 CLINICAL HISTORY: 42-year-old female N83.202 Left ovarian cyst. Left pelvic pain, 3 prior c-sections, follow up cystic area and dermoid tumor seen on CT 05/07/17 TECHNIQUE: Transvaginal (TV) and Transabdominal (TA) . Transabdominal sonographic images of the pel vis were acquired. Transvaginal sonographic images were medically necessary to better assess the fol lowing anatomy: uterus Date of LMP: 07/20/17 Findings: Uterus: Retroverted and heterogeneous in appearance measuring 8.0 x 4.1 x 5.7 cm. scar see n on the transvaginal imaging. Endometrial Stripe: 0.9 cm, within normal limits. Right Ovary: not seen with certainty. Large cystic area with internal echogenic speckles measures 17 .0 x 9.6 x 14.7 cm. No internal nodularity or septations are seen. Measured up to 18.[address] Left Ovary: 6.5 x 3.8 x 6.4 cm, enlarged secondary to a 5.7 x 3.6 x 4.8 cm heterogeneously echogenic area. Measured up to 6.[address] Likely underestimated on ultrasound. Posterior cul-de-sac: small amount of free fluid IMPRESSION: 1. Very large cystic lesion filling the central pelvis and right adnexa measuring up to 17.0 cm on ul trasound. It measured up to 18.[address] Internal speckles are present without additional internal complexity. An epithelial ovarian neoplasm such as serous cystadenoma is the primary differential con sideration. Surgical consultation recommended. 2. 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 3. Small amount of cul-de-sac free fluid likely physiologic.
== END | disposition home or self-care (01) ==
LOC: RADUSWWP 13:19
PROVIDERS: ATTEND Family Medicine
DX: D27.1 Benign neoplasm of left ovary (principal); N83.8 Other noninflammatory disorders of ovary, fallopian tube and broad ligament; N94.89 Other specified conditions associated with female genital organs and menstrual cycle
CPT/HCPCS: 76830; 76856

== ENCOUNTER 2017-08-15 15:48 | Emergency (ER) | payer OTHER ==
[2017-08-15 15:59] VITALS: BP 147/90; PULSE 118; RESP 16; TEMP 98.8
--- NOTE | 2017-08-15 16:35 | XR ---
EXAMINATION TYPE: XR lumbar spine 3V, XR knee complete 3 views LT DATE OF EXAM: 08/15/2017 COMPARISON: NONE HISTORY: 42-year-old female with pain after slip and fall 2 days ago FINDINGS: Lumbar spine: 5 lumbar type vertebral bodies. Incidental posterior fusion defect at S1. Hypertrophic facet arthropa thy lower lumbar spine moderate to advanced disc height loss and endplate spondylosis at L5-S1. Verte bral body heights are maintained and alignment is preserved. Left knee: There is a small knee joint effusion. No acute fracture, subluxation, or dislocation seen. Extensor m echanism is intact. IMPRESSION: 1. Lumbar spine No vertebral compression collapse or malalignment. Moderate to advanced degenerative disc disease L5-S1 and facet arthropathy lower lumbar spine. 2. Left knee: Small knee joint effusion. No acute osseous abnormality seen.
[2017-08-15] MEDS ORDERED: HYDROcodone/APAP 10-325MG 1 EACH TAB PO ONE (16:56)
--- NOTE | 2017-08-15 16:56 | ED ---
Fall HPI - General Chief Complaint: Fall Stated Complaint: FALL Time Seen by Provider: 08/15/17 16:01 Source: patient, RN notes reviewed, old records reviewed Mode of arrival: ambulatory - History of Present Illness Initial Comments: This patient is a 42-year-old female presents emergency Department chief complaint of left knee pain. She reports that she slipped and fell 2 days ago when being discharged from the hospital when she returned home. She reports that she slipped on stairs. She complains of lower back pain and left knee pain. She states she's noticed some swelling on the left knee. She reports that when she walks she feels like her knee will give way. No previous injuries to the knee. She does have a history of chronic back pain. She denies any other symptoms at this time denies any numbness or tingling. She reports that she has been taking Grethel which she was prescribed on her initial emergency department visit 2 days ago. He reports it doesn't help with her pain. - Related Data Home Medications Medication Instructions Recorded Confirmed Sertraline HCl [Zoloft] 200 mg PO DAILY 02/04/17 08/12/17 Propranolol [Inderal] 20 mg PO BID 03/11/17 08/12/17 ALPRAZolam [Xanax] 0.5 mg PO TID PRN 08/12/17 08/12/17 Cyclobenzaprine [Flexeril] 5 mg PO BID 08/12/17 08/12/17 Gabapentin 800 mg PO TID 08/12/17 08/12/17 Mirtazapine [Remeron] 15 mg PO HS 08/12/17 08/12/17 traZODone HCL 100 mg PO HS 08/12/17 08/12/17 Previous Rx's Medication Instructions Recorded Hydrocodone/Acetaminophen [Grethel 1 tab PO Q6HR PRN #15 tab 08/12/17 5-325] Ondansetron [Zofran ODT] 4 mg PO Q8HR PRN #10 tab 08/12/17 Ibuprofen [Motrin] 800 mg PO TID #30 tab 08/15/17 Allergies Allergy/AdvReac Type Severity Reaction Status Date / Time Penicillins Allergy Unknown Verified 08/15/17 15:59 Childhood Review of Systems ROS Statement: Those systems with pertinent positive or pertinent negative responses have been documented in the HPI. ROS Other: All systems not noted in ROS Statement are negative. Past Medical History Past Medical History: No Reported History Additional Past Medical History / Comment(s): sciatica. Chronic pancreatitis. Legally blind. Degenerative joint disease of the back. History of ovarian cyst History of Any Multi-Drug Resistant Organisms: None Reported Past Surgical History: Section, Cholecystectomy Additional Past Surgical History / Comment(s): ovarian cyst removal Past Anesthesia/Blood Transfusion Reactions: No Reported Reaction Past Psychological History: Anxiety, Depression Smoking Status: Current every day smoker Past Alcohol Use History: None Reported Past Drug Use History: Marijuana - Past Family History Father Family Medical History: Cancer Additional Family Medical History / Comment(s): leukemia General Exam - General Exam Comments Initial Comments: Alert and oriented 42-year-old female. No distress. Limitations: no limitations General appearance: alert, in no apparent distress Head exam: Present: atraumatic Eye exam: Present: normal appearance, PERRL, EOMI. Absent: scleral icterus, conjunctival injection, periorbital swelling ENT exam: Present: normal exam, mucous membranes moist Neck exam: Present: normal inspection. Absent: tenderness, meningismus, lymphadenopathy Respiratory exam: Present: normal lung sounds bilaterally Cardiovascular Exam: Present: regular rate, normal rhythm, normal heart sounds. Absent: systolic murmur, diastolic murmur, rubs, gallop, clicks Left Upper Leg exam: Present: normal inspection, full ROM Knee exam: Present: tenderness, swelling, effusion, pain/laxity with valgus. Absent: normal inspection, ecchymosis, deformity, crepitus, dislocation, erythema, pain/laxity with varus, full knee extension (Is reported that she is not able to fully extend the knee due to pain.) Lower Leg exam: Present: normal inspection, full ROM Ankle exam: Present: normal inspection, full ROM Foot/Toe exam: Present: normal inspection, full ROM Neurovascular tendon exam: Present: no vascular compromise Gait: observed and limited by pain Back exam: Present: normal inspection, other (Left-sided lumbar paraspinal tenderness.) Neurological exam: Present: alert Psychiatric exam: Present: normal affect, normal mood Skin exam: Present: warm, dry, intact, normal color. Absent: rash Course Vital Signs 08/15/17 15:57 Temperature 98.8 F Pulse Rate 118 H Respiratory 16 Rate Blood Pressure 147/90 O2 Sat by Pulse 96 Oximetry Procedures - Orthopedic Splinting/Casting Injury #1 Side: left Lower Extremity Injury Location: knee Lower Extremity Immobilizer: knee immobilizer Other Orthopedic Equipment: crutches Medical Decision Making - Medical Decision Making This is a 42-year-old female presents with his parents today she complained of left knee pain and lower back pain related to a fall 2 days ago. Her Grethel. her pain. X-ray of the lumbar spine was reviewed and shows moderate degenerative changes. She does have some swelling and tenderness over the left knee. She does have some laxity with valgus and varus stress. X-ray shows small joint effusion. She reports that she bears patient continually about. Patiently placed in a knee immobilizer. Discussed following up with orthopedic regards to this. Discussed and temperature medication and continuing her pain medicine at home. Discussed return parameters. All questions answered. - Radiology Data Radiology results: report reviewed Lumbar spine x-ray were reviewed. No vertebral compression clots or malalignment. Moderate to advanced degenerative disc disease L5-S1 facet arthropathy lower spine. The left knee x-ray shows small G the joint effusion. Otherwise no acute osseous abnormality noted. Read by Dr. Bashir. Disposition Clinical Impression: Knee sprain, Effusion, left knee, Degenerative disc disease at L5-S1 level Disposition: HOME SELF-CARE Condition: Good Instructions: Knee Sprain (ED), Swollen Knee Joint (ED) Additional Instructions: Patient has a take at home pain medication. Wear the knee immobilizer ambulate with crutches. Follow-up with health benefits specialist. Return to the emergency department if any alarming signs or symptoms occur. Prescriptions: Ibuprofen [Motrin] 800 mg PO TID #30 tab Referrals: Marilin Adams MD [Primary Care Provider] - 1-2 days Time of Disposition: 16:54
--- NOTE | 2017-08-15 17:09 | ED ---
Disposition Clinical Impression: Knee sprain, Effusion, left knee, Degenerative disc disease at L5-S1 level Disposition: HOME SELF-CARE Condition: Good Instructions: Knee Sprain (ED), Swollen Knee Joint (ED) Additional Instructions: Patient has a take at home pain medication. Wear the knee immobilizer ambulate with crutches. Follow-up with senior project controls specialist. Return to the emergency department if any alarming signs or symptoms occur. Prescriptions: Ibuprofen [Motrin] 800 mg PO TID #30 tab Referrals: Marilin Adams MD [Primary Care Provider] - 1-2 days Moise Christiansen MD [STAFF PHYSICIAN] - 1-2 days Time of Disposition: 17:09
== END 2017-08-15 17:13 | disposition home or self-care (01) ==
LOC: EC 15:48
DX: S83.92XA Sprain of unspecified site of left knee, initial encounter (principal); M25.462 Effusion, left knee; M51.37 Other intervertebral disc degeneration, lumbosacral region; F32.9 Major depressive disorder, single episode, unspecified; F41.9 Anxiety disorder, unspecified; F17.200 Nicotine dependence, unspecified, uncomplicated; Z79.899 Other long term (current) drug therapy; Z88.0 Allergy status to penicillin; W01.0XXA Fall on same level from slipping, tripping and stumbling without subsequent striking against object, initial encounter; Y92.89 Other specified places as the place of occurrence of the external cause
CPT/HCPCS: 72100; 99284